=== PATIENT | female | born 1975 | race Two or more races ===

== ENCOUNTER 2017-07-21 05:48 | Day surgery (SDC) | payer BC ==
[2017-07-21] VITALS (14 sets, daily range): BP systolic 120–146; BP diastolic 70–98
[~2017-07-21] VITALS: Ht 172.7 cm; Wt 75.3 kg
--- NOTE | 2017-07-21 06:47 | Pre-Procedure Note/Attestation ---
Pre-Procedure Note/Attestation Complete Prior to Procedure Planned Procedure: not applicable Procedure Narrative: Exam under anesthesia, possible anal fistulotomy, possible ligation of fistula tract, possible seton Indications for Procedure Pre-Operative Diagnosis: recurrent [id number]-[id number] Attestation I attest that I discussed the nature of the procedure; its benefits; risks and complications; and alternatives (and the risks and benefits of such alternatives ), prior to the procedure, with the patient (or the patient's legal physician relations representative). I attest that, if there was a reasonable possibility of needing a blood transfusion, the patient (or the patient's legal physician relations representative) was given the [place] [facility] standardized written summary, pursuant to the [place] Blood Safety Act ([place] Health and Safety Code # 1645, as amended). I attest that I re-evaluated the patient just prior to the surgery and that there has been no change in the patient's H&P, except as documented below: VALERIA HARRISON Jul 21, 2017 06:47
[2017-07-21] MEDS ORDERED: Surgicel 4in x 8in TOPIC ONE (06:52)
[2017-07-21] MEDS ORDERED: Dexamethasone 4mg/ml vial ONE (06:52)
[2017-07-21] MEDS ORDERED: Hydrogen Peroxide 473ml Bottle TOPIC ONE (06:53)
[2017-07-21] MEDS ORDERED: Ropivacaine 5mg/ml Vial 20ml INJ ONE (06:53)
[2017-07-21] MEDS ORDERED: EPINEPHrine 1mg/1ml Amp ONE (06:53)
[2017-07-21] MEDS ORDERED: cefOXitin 1gm Inj ONE (06:53)
[2017-07-21] MEDS ORDERED: Lidocaine 1% MPF 10mg/ml 5ml ONE (07:00)
[2017-07-21] MEDS ORDERED: fentaNYL 250mcg/5ml ONE (07:00)
[2017-07-21] MEDS ORDERED: Propofol 10mg/ml 100ml btl IV ONE (07:00)
[2017-07-21] MEDS ORDERED: Glycopyrrolate 0.2mg/ml 1ml Vial ONE (07:00)
[2017-07-21] MEDS ORDERED: Meperidine 25mg/0.5ml Inj (FOR RIGORS ONLY) ONE (07:00)
[2017-07-21] MEDS ORDERED: Metoclopramide 10mg/2ml Inj ONE (07:00)
[2017-07-21] MEDS ORDERED: Ketorolac 30mg Inj ONE (07:00)
[2017-07-21] MEDS ORDERED: Labetalol 5mg/ml 20ml vial IV ONE (07:00)
[2017-07-21] MEDS ORDERED: LR 1000ml ONE (07:00)
[2017-07-21] MEDS ORDERED: NORCO1 E1 ORAL (07:25)
[2017-07-21] MEDS ORDERED: MULTIVITAMINS1 EAC2 ORAL (07:25)
--- NOTE | 2017-07-21 08:23 | Anethesia Preoperative Eval ---
Anesthesia Pre-op PMH/ROS General Date of Evaluation: Jul 21, 2017 Time of Evaluation: 07:00 Anesthesiologist: TOBIAS ASA Score: ASA 2 Mallampati Score Class I : Soft palate, uvula, fauces, pillars visible Class II: Soft palate, uvula, fauces visible Class III: Soft palate, base of uvula visible Class IV: Only hard plate visible Mallampati Classification: Class II Surgeon: Lori Diagnosis: anal fistula Surgical Procedure: anal fistulectomy Anesthesia History: none Family History: no anesthesia problems Allergies: Coded Allergies: No Known Allergies (Unverified , 07/21/17) Medications: see eMAR Anesthesia Pre-op Phys. Exam Physician Exam Last Vital Signs Date Time Temp Pulse Resp B/P (MAP) Pulse Ox O2 Delivery O2 Flow Rate FiO2 07/21/17 06:31 98.0 70 19 120/72 100 Room Air Constitutional: NAD Neurologic: CN 2-12 intact Cardiovascular: RRR Respiratory: CTA Airway Exam Mallampati Score: Class II MO: full ROM: full Teeth: intact Anesthesia Pre-op A/P Labs Urine Test Test 07/21/17 06:05 Urine HCG, Qualitative Negative Risk Assessment & Plan Plan: GA Pre-Antibiotics Given Within 1 Hr of Incision: Yes Time Given: 07:20 Kevin Benites M.D. Jul 21, 2017 08:23
--- NOTE | 2017-07-21 08:24 | Immediate Post-Op Evaluation ---
Immediate Post-Op Evalulation Immediate Post-Op Evalulation Procedure: Anal fistula repair Date of Evaluation: Jul 21, 2017 Time of Evaluation: 09:00 IV Fluids: 1000 Blood Products: 0 Estimated Blood Loss: 0 Urinary Output: 0 Blood Pressure Systolic: 123 Blood Pressure Diastolic: 72 Pulse Rate: 62 Respiratory Rate: 14 O2 Sat by Pulse Oximetry: 99 Temperature (Fahrenheit): 98 Pain Score (1-10): 0 Nausea: No Vomiting: No Patient Status: awake, reacts, patent Given Within 1 Hr of Incision: Yes Time Given: 07:20 Kevin Benites M.D. Jul 21, 2017 08:24
--- NOTE | 2017-07-21 08:25 | 48 Hour Post Anesthesia Eval ---
Post Anesthesia Evaluation Procedure: Anal fistula repair Date of Evaluation: Jul 23, 2017 Time of Evaluation: 08:00 Blood Pressure Systolic: 145 0: 65 Pulse Rate: 63 Respiratory Rate: 16 Temperature (Fahrenheit): 98 O2 Sat by Pulse Oximetry: 99 Airway: patent Nausea: No Vomiting: No Pain Intensity: 0 Hydration Status: adequate Mental Status/LOC: patient returned to baseline Follow-up care needed: patient intructions given Kevin Benites M.D. Jul 21, 2017 08:25
[2017-07-21] MEDS ORDERED: fentaNYL 100 mcg/2 mL IV PRN ×2 (08:30)
[2017-07-21] MEDS ORDERED: Hydromorphone 0.5mg/0.5ml inj IVP PRN ×2 (08:30→10:30)
--- NOTE | 2017-07-21 09:18 | Brief Operative Note ---
Immediate Post Operative Note Operative Note Chief Complaint: Recurrent fistula Pre-op Diagnosis: recurrent adhnecx-gl-tki Procedure: Exam under anesthesia, ligation of fistula tract (LIFT) Post-op Diagnosis: same Post-op Diagnosis: same as pre-op Findings: consistent w/pre-op dx studies Surgeon: Janice Sandoval MD Security Installer: Eleni Easley MD Anesthesiologist: Kevin Benites MD Anesthesia: moderate sedation Specimen: none Complications: none Fluids: TKO Estimated Blood Loss: minimal Drains: none Implant(s) used?: JANICE Koo Jul 21, 2017 09:18
--- NOTE | 2017-07-21 09:19 | Discharge Instructions ---
Discharge Instructions Discharge Instructions Diet: regular Activity: as tolerated Follow Up Orders - remove dressings and tape tonight. May wear pantyliner - no soaking, baths. Shower only. - call for appt with Dr. Harrison in 2-3 weeks. For Surgical Patients May shower: Yes For Congestive Heart Failure Reminder Report to your physician any weight gain of 5 pounds or more in one week. VALERIA HARRISON Jul 21, 2017 09:19
[2017-07-21] MEDS: Hydromorphone 0.5mg/0.5ml inj IVP PRN ×4 (09:31→10:23)
[2017-07-21] MEDS ORDERED: DiphenhydrAMINE 50mg/ml Inj IVP ONE (10:30)
--- NOTE | 2017-07-22 03:16 | Operative Note - Dictated ---
DATE OF OPERATION: 07/21/2017 PREOPERATIVE DIAGNOSIS: Recurrent vytpgri-bc-pph. POSTOPERATIVE DIAGNOSIS: Recurrent kgtqikc-px-jlw. PROCEDURE: Exam under anesthesia, ligation of fistula tract. SURGEON: Janice Sandoval M.D. NOODLE PRESS OPERATOR SURGEON: Eleni Easley M.D. ANESTHESIOLOGIST: Kevin Benites M.D. ANESTHESIA: Propofol sedation with local anesthetic. INDICATION FOR PROCEDURE: The patient is a 42-year-old female, who was sent to my office by her surgeon, Dr. Javier Jennings for colorectal surgical evaluation of recurrent anal fistulas. The patient has had multiple fistula surgeries x10 since 2003 ranging to 2014. The patient was in [place], [place] at that time and had eight surgeries on her anal area there and moved to [place] where last two surgeries were by Dr. Jennings. Endorectal advancement flap was her last surgery. The patient had an MRI performed, which showed that there was an anal fistula. The patient had two external draining tracts with scar tissue from her previous surgeries. In light of the patient's findings, it was determined at this time to proceed with exam under anesthesia with ligation of fistula tract. DESCRIPTION OF PROCEDURE: Upon consent of the patient, the patient was brought to the operating room and placed supine on the operating room table. Once adequate sedation was established with propofol drip, the patient's buttocks were prepped and draped in usual surgical fashion. A 40 mL of 0.5% ropivacaine with epinephrine mixed with 6 mg of dexamethasone was used as a perianal pudendal block. During the surgery, an additional 10 mL of 0.5% ropivacaine with epinephrine was used. The patient was noted in her physical exam to have scarring in the left lateral perianal region and two external draining tracts in the left lateral perianal region as well as the posterior midline. A Hill-Paul retractor was placed in the anal canal moderate internal hemorrhoids and some scar tissue in the left lateral anal canal. The posterior midline external anal opening was probed and it was noted to be connected to the internal opening at the dentate line located at the posterior midline. The probe from the left lateral external opening connected to the external opening of the posterior midline area. At the posterior midline, lacrimal probe was palpated and it was noted to be quite deep. It was determined at this time to proceed with the LIFT procedure, which is the ligation of the fistula tract. A small incision was made overlying the lacrimal probe in the posterior midline in the intersphincteric space and dissected all way down to the probe. The probe was noted to be quite deep and there was extensive scar tissue due to her previous surgeries. The tract was isolated and was noted to be very deep. So, decision was made to close the internal opening from the inside and also from the intersphincteric space as well as in the internal anal canal. These were done with 2-0 Vicryl [id number] sutures in the anal canal as well as 3-[address] the intersphincteric place to close the internal opening. The distal end of the fistula tract was ligated with a [id number]-fymlf 2-0 Vicryl sutures. The tracts were again probed to make sure there was no connection to the internal opening. The tracts were then curetted of any granulation tissue and the wound was irrigated. Hemostasis was confirmed. The wound was closed with the sphincteric muscle to buttress in between the divided tracts in interrupted layers using interrupted 3-0 Vicryl sutures. The skin was closed with 3-0 Vicryl interrupted horizontal mattress sutures. Sterile dry dressing was used as an outer dressing. Sponge, needle, and instrument counts were correct at the end of the case. The patient was awakened from anesthesia and brought to postanesthesia recovery in stable condition. ESTIMATED BLOOD LOSS: Less than 5 mL. DRAINS: None. SPECIMEN: None. COMPLICATIONS: None. Janice Sandoval M.D. DR: TRAVON JOB#: [id number] CC: Janice Sandoval M.D.; Fax#: [phone] Potter M.D.; Fax#: [phone]
== END 2017-07-21 12:25 | disposition home or self-care (01) ==
LOC: SUR 05:48
DX: K60.5 Anorectal fistula (principal); K64.8 Other hemorrhoids
CPT/HCPCS: 46275; 81025; J0171; J0694; J1100; J1170; J1200; J1885; J2250; J2405; J2704; J2765; J2795; J3010; J7120; 94003; 94150; J2180

== ENCOUNTER 2017-12-07 06:05 | Day surgery (SDC) | payer BC ==
[2017-12-07] VITALS (15 sets, daily range): BP systolic 112–133; BP diastolic 64–86
[~2017-12-07] VITALS: Ht 172.7 cm; Wt 77.1 kg
[~2017-12-07 06:05] MED LIST: MULTIVITAMINS1 EAC2 ORAL; NORCO1 E1 ORAL
[2017-12-07] MEDS ORDERED: Propofol 200mg/20ml IV ONE (06:06)
[2017-12-07] MEDS ORDERED: Zemuron 50mg/5ml Inj IV ONE (06:06)
[2017-12-07] MEDS ORDERED: Midazolam 2mg/2ml Inj ONE ×2 (06:06)
[2017-12-07] MEDS ORDERED: fentaNYL 100 mcg/2 mL IV ONE (06:06)
[2017-12-07] MEDS ORDERED: LR 1000ml ONE (06:06)
[2017-12-07] MEDS ORDERED: Morphine Sulfate 10mg/ml Inj ONE (06:06)
[2017-12-07] MEDS ORDERED: NS Irrig 1000ml ONE (06:06)
[2017-12-07] MEDS ORDERED: Sterile Water Irrig 1000ml IRRIG ONE (06:06)
[2017-12-07] MEDS ORDERED: Lidocaine 1% MPF 10mg/ml 5ml ONE (06:06)
[2017-12-07] MEDS ORDERED: Dexamethasone 4mg/ml vial ONE ×2 (06:06→06:27)
[2017-12-07] MEDS ORDERED: Metoclopramide 10mg/2ml Inj ONE (06:06)
[2017-12-07] MEDS ORDERED: EPINEPHrine 1mg/1ml Amp ONE (06:27)
[2017-12-07] MEDS ORDERED: Ropivacaine 5mg/ml Vial 30ml INJ ONE (06:27)
[2017-12-07] MEDS ORDERED: cefOXitin 1gm Inj ONE (06:27)
[2017-12-07] MEDS ORDERED: Hydrogen Peroxide 473ml Bottle TOPIC ONE (06:28)
[2017-12-07] MEDS ORDERED: Acetic Acid 3% Solution 15ml TOPIC ONE (06:30)
--- NOTE | 2017-12-07 06:42 | Anethesia Preoperative Eval ---
Anesthesia Pre-op PMH/ROS General Date of Evaluation: Dec 07, 2017 Anesthesiologist: Martinez ASA Score: ASA 2 Mallampati Score Class I : Soft palate, uvula, fauces, pillars visible Class II: Soft palate, uvula, fauces visible Class III: Soft palate, base of uvula visible Class IV: Only hard plate visible Mallampati Classification: Class II Surgeon: Lori Diagnosis: Anal fistula Surgical Procedure: EUA and possible seton placement Anesthesia History: none Family History: no anesthesia problems Allergies: Coded Allergies: METRONIDAZOLE (Verified Allergy, Intermediate, stomach sentivity , 12/07/17 ) Medications: see eMAR Past Medical History Cardiovascular: Denies: HTN, CAD, [place], valve dz, arrhythmia, other Pulmonary: Denies: asthma, COPD, HEYDI, other Gastrointestinal/Genitourinary: Reports: other - Chrons, Denies: GERD, CRI, ESRD Neurologic/Psychiatric: Denies: dementia, CVA, depression/anxiety, TIA, other Endocrine: Reports: other - PCOS, Denies: DM, hypothyroidism, steroids HEENT: Denies: cataract (L), cataract (R), glaucoma, ABSENTEE-SHAWNEE (L), ABSENTEE-SHAWNEE (R), other Hematology/Immune: Denies: anemia, DVT, bleeding disorder, other Musculoskeletal/Integumentary: Denies: OA, RA, DJD, DDD, edema, other PSxH Narrative: Anal fistula repair, otoplasty Anesthesia Pre-op Phys. Exam Physician Exam Last Vital Signs Date Time Temp Pulse Resp B/P (MAP) Pulse Ox O2 Delivery O2 Flow Rate FiO2 12/07/17 06:39 98.9 74 18 133/76 98 Room Air Constitutional: NAD Cardiovascular: RRR Respiratory: CTA Airway Exam Mallampati Score: Class II MO: full ROM: full Teeth: intact Anesthesia Pre-op A/P Labs see chart Urine Test Test 12/07/17 06:10 Urine HCG, Qualitative Pending Studies Pre-op Studies: EKG - sr Risk Assessment & Plan Assessment: ASA II Plan: GA Status Change Before Surgery: No Pre-Antibiotics Drug: Cefoxitin 1g Given Within 1 Hr of Incision: Yes Time Given: 07:15 DEVAN WILKINS M.D. Dec 07, 2017 06:42
[2017-12-07] MEDS ORDERED: LR 1000ml 1,000 ML IVLG SCH (06:43)
[2017-12-07] MEDS ORDERED: Midazolam 2mg/2ml Inj IVP PRN (06:45)
[2017-12-07] MEDS ORDERED: DiphenhydrAMINE 50mg/ml Inj IVP PRN (06:45)
[2017-12-07] MEDS ORDERED: fentaNYL 100 mcg/2 mL IV PRN (06:45)
[2017-12-07] MEDS ORDERED: Ketorolac 30mg Inj IV PRN (06:45)
[2017-12-07] MEDS ORDERED: Hydromorphone 0.5mg/0.5ml inj IVP PRN (06:45)
--- NOTE | 2017-12-07 06:49 | Pre-Procedure Note/Attestation ---
Pre-Procedure Note/Attestation Complete Prior to Procedure Planned Procedure: not applicable Procedure Narrative: Exam under anesthesia, anal fistulotomy, possible seton placement Indications for Procedure Pre-Operative Diagnosis: recurrent anal fistulas Attestation I attest that I discussed the nature of the procedure; its benefits; risks and complications; and alternatives (and the risks and benefits of such alternatives ), prior to the procedure, with the patient (or the patient's legal employee's representative). I attest that, if there was a reasonable possibility of needing a blood transfusion, the patient (or the patient's legal employee's representative) was given the [facility] standardized written summary, pursuant to the [place] Blood Safety Act ([place] Health and Safety Code # 1645, as amended). I attest that I re-evaluated the patient just prior to the surgery and that there has been no change in the patient's H&P, except as documented below: VALERIA HARRISON Dec 07, 2017 06:49
[2017-12-07] MEDS ORDERED: NS Irrig 1000ml IRRIG ONE (07:10)
--- NOTE | 2017-12-07 07:28 | Immediate Post-Op Evaluation ---
Immediate Post-Op Evalulation Immediate Post-Op Evalulation Procedure: Rectal EUA and seton placement Date of Evaluation: Dec 07, 2017 Time of Evaluation: 08:27 IV Fluids: 800 Blood Products: 0 Estimated Blood Loss: min Urinary Output: 0 Blood Pressure Systolic: 129 Blood Pressure Diastolic: 85 Pulse Rate: 95 Respiratory Rate: 16 O2 Sat by Pulse Oximetry: 99 Temperature (Fahrenheit): 98 Pain Score (1-10): 0 Nausea: No Vomiting: No Complications 0 Patient Status: awake, reacts, patent, none Hydration Status: adequate Drug: Cefoxitin 1g Given Within 1 Hr of Incision: Yes Time Given: 07:15 DEVAN WILKINS M.D. Dec 07, 2017 07:28
--- NOTE | 2017-12-07 07:49 | 48 Hour Post Anesthesia Eval ---
Post Anesthesia Evaluation Procedure: Rectal EUA and seton placement Date of Evaluation: Dec 07, 2017 Blood Pressure Systolic: 118 0: 74 Pulse Rate: 85 Respiratory Rate: 19 Temperature (Fahrenheit): 98 O2 Sat by Pulse Oximetry: 96 Airway: patent Nausea: No Vomiting: No Pain Intensity: 0 Hydration Status: adequate Cardiopulmonary Status: at baseline Mental Status/LOC: patient returned to baseline Post-Anesthesia Complications: 0 Follow-up care needed: ready to discharge DEVAN WILKINS M.D. Dec 07, 2017 07:49
[2017-12-07] MEDS: Morphine Sulfate 2mg/ml Inj IVP PRN ×2 (09:21→09:37)
--- NOTE | 2017-12-07 12:15 | Operative Note - Dictated ---
DATE OF OPERATION: 12/07/2017 PREOPERATIVE DIAGNOSIS: Recurrent zsusodp-ng-dpm. POSTOPERATIVE DIAGNOSIS: Recurrent zkdpibg-nd-owi. PROCEDURES: Exam under anesthesia, anal fistulotomy, seton placement. SURGEON: Janice Sandoval M.D. ANESTHESIOLOGIST: Chelsey Henriquez M.D. ANESTHESIA: General endotracheal anesthesia. INDICATION FOR PROCEDURE: The patient is a 42-year-old female with a long history of recurrent anal fistulas. The patient had 10 fistula repairs from 2003 to 2013. The patient had endorectal advancement, status post multiple anal fistulotomies. The patient was taken to surgery on 07/21/2017, by nd for ligation of anal fistula tract. This resulted in healing of the posterior wound, but persistent drainage from the original incision. In light of the patient's history, it was determined at this time to proceed with a repeat exam under anesthesia with anal fistulotomy at this time with seton placement. DESCRIPTION OF PROCEDURE: Upon consent of the patient, the patient was brought to the operating room and intubated in the supine position on the gurney. Once general endotracheal anesthesia had been established, the patient was repositioned in the prone jackknife position on the operating room table. The patient's buttocks were then prepped and draped in the usual surgical fashion. A 40 mL of 0.5% ropivacaine with epinephrine mixed with 6 mg of dexamethasone was used as a perineal and pudendal block. A Hill-Paul retractor was placed in the anal canal. There was noted to be the original posterior fistula opening that was healed and there was a persistent opening at the posterior midline, closure to the anal verge from the original LIFT incision. This was probed with a lacrimal probe and there was a short fistula tract with an internal opening at the dentate line in the midline. The skin was opened overlying the tract. There was noted to be a significant amount of 40% of the sphincteric muscle involved. So, a seton was placed over this and over surrounding the sphincteric area and secured with 0 silk sutures. The left perianal opening was curetted and probed and noted to be communicating with the posterior midline internal opening. There was no other internal opening that was noted. The tracts were then curetted and irrigation was performed. Hemostasis was confirmed. Proctosigmoidoscopy up to 25 cm was performed, which showed no other proctitis or abnormality. There were multiple scarring of the anal area and the perianal region secondary to her multiple surgeries. A wet-to-dry dressing was used to pack the wounds in the posterior midline, also in the left lateral perianal area and sterile dry dressing was used overlying the wound. Sponge, needle, and instrument counts were correct at the end of the case. The patient was awakened from anesthesia, extubated, and brought to postanesthesia recovery in stable condition. ESTIMATED BLOOD LOSS: 10 mL. DRAINS: Seton in the posterior midline perianal region. SPECIMEN: None. COMPLICATIONS: None. Janice Sandoval M.D. DR: LORETA JOB#: [id number] CC: Janice Sandoval M.D.; Fax#: [phone] LIZBETH AG M.D. ; FAX#: [phone] Chitra Anaya M.D. [facility]
== END 2017-12-07 11:35 | disposition home or self-care (01) ==
LOC: SUR 06:05
DX: K60.3 Anal fistula (principal); K50.90 Crohn's disease, unspecified, without complications; Z88.8 Allergy status to other drugs, medicaments and biological substances
CPT/HCPCS: 81025; 94003; 94150; J2250; J2405; J2765